=== PATIENT | male | born 1950 | race Hispanic/Latino ===

== ENCOUNTER 2019-04-26 21:11 | Emergency (ER) | payer BC, MEDICARE ==
[~2019-04-26] VITALS: Ht 177.8 cm; Wt 100.7 kg
[~2019-04-26 21:11] MED LIST: ATORVASTATIN CA20 MG PO; CARVEDILOL12.5 MG PO; COREG; FINASTERIDE5 MG PO; LORATADINE10 MG PO; LOSARTAN POTASS25 MG PO; TAMSULOSIN HCL0.4 MG PO
--- OUTSIDE RECORDS SUMMARY | 2019-04-26 21:14 | XMS REPORT | Clinical Summary ---
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 Last Filed Vital Signs Not on file Plan of Treatment Health Maintenance Due Date Last Done Comments COLON CANCER SCREENING 1998 SHINGLES VACCINES (#1) 1998 65+ PNEUMOCOCCAL VACCINE 2013 09/20/2014 (2 of 2 - PPSV23) INFLUENZA VACCINE 06/23/2019 09/25/2015, 09/20/2014, 10/06/2013, Additional history exists PNEUMOCOCCAL Completed 09/20/2014 POLYSACCHARIDE VACCINE AGE 65 AND OVER Results Not on fileafter 04/25/2018 Insurance Type Payer Benefit Subscriber ID Effective Phone Address Plan / Dates Group xxxxxxxxx 2017-P FOR LIFE resent PPO BCBS BCBS xxxxxxxxx 2004-P CHOICE resent PPO/[employer] PPO Advance Directives Patient has advance care planning documents on file. For more information, clotilde christy contact: Jonathan Garcia [address] [place] [address]
--- OUTSIDE RECORDS SUMMARY | 2019-04-26 21:17 | XMS REPORT | Clinical Summary ---
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
--- NOTE | 2019-04-26 21:54 | Diagnostic Imaging Report ---
EXAMINATION: Head CT without contrast. HISTORY:Near syncope. COMPARISON:Compared with report of CT brain from 02/07/2017, images are not available for comparison at the time of interpretation. TECHNIQUE: Multidetector axial images were obtained from the foramen magnum to the vertex without contrast. The images were reconstructed using brain and bone algorithms. Thin section brain images were reformatted into coronal and sagittal planes. Dose modulation, iterative reconstruction, and/or weight based adjustment of the mA/kV was utilized to reduce the radiation dose to as low as reasonably achievable. Intravenous contrast: None IMAGE QUALITY: Acceptable. FINDINGS: Skull/scalp: No lytic or blastic. lesions. No surgical changes. Parenchyma: Unchanged nonspecific bilateral frontoparietal patchy white matter hypodensity are likely related to small vessel ischemic changes. No acute hemorrhage, mass or acute major vascular territorial infarct. Arteries: No density suggestive of thrombosis. Dural sinuses: No abnormal density suggestive of thrombosis. Ventricles: No hydrocephalus or displacement. Extra-axial spaces: No abnormal density. Brain volume: Normal for age. Craniocervical junction: No mass, Chiari malformation, or basilar invagination. Sella: No mass. Paranasal/mastoid sinuses: Imaged portions unremarkable. IMPRESSION: No acute intracranial abnormality. Signed by: Dr. Lacie Odom M.D. on 04/26/2019 9:51 PM
[2019-04-26] MEDS ORDERED: HYDRALAZINE HCL 20 MG/ML VIAL IV STA (22:00)
--- NOTE | 2019-04-26 22:06 | Diagnostic Imaging Report ---
EXAMINATION: CHEST SINGLE (PORTABLE) INDICATION: ^NEAR SYNCOPE ^[id number] ^[id number] ^Y COMPARISON: None available. FINDINGS: AP view TUBES and LINES: None. LUNGS: Lungs are well inflated. Bilateral medial lower lung field/infrahilar hazy opacities. PLEURA: No pleural effusion or pneumothorax. HEART AND MEDIASTINUM: The cardiomediastinal silhouette is prominent on this AP view. Median sternotomy wires and mediastinal surgical clips. BONES AND SOFT TISSUES: No acute osseous lesion. Soft tissues are unremarkable. UPPER ABDOMEN: No free air under the diaphragm. IMPRESSION: Bilateral medial lower lung field/infrahilar opacities, representing atelectasis versus aspiration/pneumonia. Signed by: Dr. Reji Parada MD on 04/26/2019 10:03 PM
[2019-04-26 22:13] LABS: BASOPHILS % 0.4 % (0.0-1.0); EOSINOPHILS % 0.6 % (0.0-6.0); HEMATOCRIT 37.8 % (38.2-49.6); HEMOGLOBIN 12.4 g/dL (14.0-18.0); LYMPHOCYTES # (AUTO) 1.6 (1.0-3.2); LYMPHOCYTES % 31.1 % (18.0-39.1); MEAN CORPUSCULAR HGB CONC 32.8 g/dL (31-35); MEAN CORPUSCULAR VOLUME 97.7 fL (81-99); MONOCYTES # (AUTO) 0.4 (0.2-0.8); MONOCYTES % 8.1 % (4.4-11.3); NEUTROPHILS # (AUTO) 3.1 (2.1-6.9); NEUTROPHILS % 59.6 % (38.7-80.0); PLATELET COUNT 163 x10e3/uL (140-360); RED BLOOD COUNT 3.87 x10e6/uL (4.3-5.7); RED CELL DISTRIBUTION WIDTH 12.7 % (11.7-14.4)
[2019-04-26 22:30] LABS: BILIRUBIN,URINE NEGATIVE (NEGATIVE); CLARITY,URINE CLEAR (CLEAR); COLOR,URINE YELLOW (YELLOW); KETONES,URINE NEGATIVE (NEGATIVE); LEUKOCYTE ESTERASE ,URINE NEGATIVE (NEGATIVE); NITRITE,URINE NEGATIVE (NEGATIVE); PROTEIN,URINE DIPSTICK NEGATIVE (NEGATIVE); URINE UROBILINOGEN 0.2 mg/dL (0.2 - 1)
[2019-04-26 22:36] LABS: ALANINE AMINOTRANSFERASE 18 IU/L (0-55); ALBUMIN/GLOBULIN RATIO 1.3 (0.8-2.0); ALKALINE PHOSPHATASE 58 IU/L (40-150); ANION GAP 12.1 mmol/L (8-16); BLOOD UREA NITROGEN 16 mg/dL (7-26); BUN/CREATININE RATIO 17 (6-25); CALCIUM 8.9 mg/dL (8.4-10.2); CARBON DIOXIDE 25 mmol/L (22-29); CHLORIDE 101 mmol/L (98-107); CREATININE, SERUM 0.93 mg/dL (0.72-1.25); EST GLOMERULAR FILTRATION RATE > 60 ML/MIN (60-); GLUCOSE 95 mg/dL (74-118); POTASSIUM 3.1 mmol/L (3.5-5.1); SODIUM 135 mmol/L (136-145)
[2019-04-26 22:54] LABS: WBC,URINE (MAN) 0-5 /HPF (0-5)
[2019-04-26 22:55] LABS: BACTERIA,URINE FEW /HPF; EPITHELIAL CELLS,URINE FEW /LPF
[2019-04-26] MEDS ORDERED: POTASSIUM CHLORIDE 20 MEQ TAB CR PO STA (23:06)
[2019-04-26 23:07] LABS: CREATINE KINASE 92 IU/L (30-200)
--- NOTE | 2019-04-26 23:08 | NUR ---
REPORT GIVEN TO PADMINI DANIELS POWDER LOADER NURSE.
--- NOTE | 2019-04-26 23:09 | NUR ---
RECEIVED REPORT FROM PADMINI HAYNES DAY SHIFT NURSE.
[2019-04-27 00:41] VITALS: BP 169/76
== END 2019-04-27 01:22 | disposition home or self-care (01) ==
LOC: ER 21:14
DX: R55 Syncope and collapse (principal); I12.9 Hypertensive chronic kidney disease with stage 1 through stage 4 chronic kidney disease, or unspecified chronic kidney disease; N18.9 Chronic kidney disease, unspecified; E87.6 Hypokalemia; Z82.49 Family history of ischemic heart disease and other diseases of the circulatory system; Z83.3 Family history of diabetes mellitus
CPT/HCPCS: 36415; 70450; 71045; 80053; 80320; 81001; 82550; 82553; 84484; 85025; 93005; 99284; J0360